=== PATIENT | male | born 1960 | race Caucasian/White ===

== ENCOUNTER 2017-06-25 06:31 | Day surgery (SDC) | payer BC ==
[~2017-06-25] VITALS: Ht 177.8 cm; Wt 94.6 kg
[~2017-06-25 06:31] MED LIST: [UNRECOGNIZED DRUG - OTHER]
[2017-06-25] MEDS ORDERED: SODIUM CHLORIDE 0.9% 1000ML 1,000 ML IV ONE (06:47)
[2017-06-25 08:13] VITALS: BP 183/92
[2017-06-25] MEDS ORDERED: PROPOFOL 10 MG/ML 20ML VIAL IV ONE (09:16)
[2017-06-25 09:45] VITALS: BP 90/53
== END 2017-06-25 10:20 | disposition home or self-care (01) ==
LOC: DAH 06:31
PROVIDERS: ATTEND Internal Medicine Gastroenterology
DX: Z12.11 Encounter for screening for malignant neoplasm of colon (principal); F32.9 Major depressive disorder, single episode, unspecified; Z98.890 Other specified postprocedural states
CPT/HCPCS: 45378; A4606; J2704; J7030

== ENCOUNTER 2022-03-30 13:00 | Observation (INO) | payer BC ==
[~2022-03-30] VITALS: Ht 177.8 cm; Wt 79.9 kg
[2022-03-30 13:52] LABS: BASOPHILS % (AUTO) 0.5 % (0.0-5.0); EOSINOPHILS % (AUTO) 2.2 % (0.0-8.0); HEMATOCRIT 44.4 % (42-54); LYMPHOCYTES % (AUTO) 17.7 % (21.0-51.0); MEAN CORPUSCULAR HEMOGLOBIN 32.9 pg (27.0-33.0); MEAN CORPUSCULAR HGB CONC 34.7 g/dL (32.0-36.0); MEAN CORPUSCULAR VOLUME 94.9 fL (79-99); MONOCYTES % (AUTO) 5.7 % (3.0-13.0); NEUTROPHILS % (AUTO) 73.6 % (40.0-77.0); PLATELET COUNT (AUTO) 202 K/uL (130-400); RED BLOOD CELL COUNT(AUTO) 4.68 MIL/uL (4.50-6.20); RED CELL DISTRIBUTION WIDTH 12.8 % (11.0-15.5); WHITE BLOOD COUNT (AUTO) 10.6 K/uL (4.8-10.8)
[2022-03-30 14:02] LABS: INR 0.94 (0.85-1.15); PROTHROMBIN TIME 10.3 SEC (9.6-11.6)
[2022-03-30 14:04] LABS: PARTIAL THROMBOPLASTIN TIME 28.5 SEC (26.3-35.5)
[2022-03-30 14:04] LABS: CREATININE 0.7 mg/dL (0.5-1.5); POTASSIUM 4.3 mmol/L (3.5-5.1)
[2022-03-30 14:23] LABS: APPEARANCE,URINE CLEAR (CLEAR); BILIRUBIN,URINE NEGATIVE (NEGATIVE); COLOR,URINE LIGHT-YELLOW (YELLOW); GLUCOSE, URINE (UA) NEGATIVE (NEGATIVE); KETONES,URINE 5 mg/dL (NEGATIVE); LEUKOCYTE ESTERASE ,URINE NEGATIVE Leu/uL (NEGATIVE); NITRATE,URINE NEGATIVE (NEGATIVE); OCCULT BLOOD,URINE NEGATIVE (NEGATIVE); PH,URINE 5.5 (5.0-8.0); PROTEIN,URINE NEGATIVE (NEGATIVE); UROBILINOGEN,URINE 0.2 mg/dL (0.2-1.0)
[2022-03-30 14:46] LABS: MUCUS,URINE RARE LPF (None Seen); RBC,URINE 0-1 /HPF (0-1); WBC,URINE 0-1 /HPF (0-1)
[2022-03-30 16:26] VITALS: BP 138/84
[2022-03-30] MEDS ORDERED: BREX2TAB PO (17:47)
[2022-03-30] MEDS ORDERED: AMPH30CA PO (17:47)
[2022-03-30] MEDS ORDERED: TERB250T89 PO (17:47)
[2022-03-30] MEDS ORDERED: TRINTELLIX PO (17:48)
[2022-04-02] VITALS (25 sets, daily range): BP systolic 116–154; BP diastolic 72–90
[2022-04-02] MEDS ORDERED: CEFAZOLIN SODIUM 1 GM VIAL ONE (09:00)
[2022-04-02] MEDS ORDERED: LACTATED RINGERS 1000ML 1,000 ML IV ONE (09:00)
[2022-04-02] MEDS ORDERED: ROPIVACAINE 0.5% 5MG/ML 30ML IJ ONE (11:31)
[2022-04-02] MEDS ORDERED: TRANEXAMIC ACID 1000MG/10ML ONE (11:52)
[2022-04-02] MEDS ORDERED: VANCOMYCIN 1G VIAL ONE (12:09)
[2022-04-02] MEDS ORDERED: MIDAZOLAM HCL 1 MG/ML 2ML VIAL ONE (13:21)
[2022-04-02] MEDS ORDERED: ROCURONIUM 10MG/1ML SYR 10 MG/ML ML ONE ×2 (13:21→14:45)
[2022-04-02] MEDS ORDERED: PROPOFOL 10 MG/ML 20ML VIAL IV ONE (13:21)
[2022-04-02] MEDS ORDERED: LIDOCAINE PF 100MG/5ML (2%) SYRINGE 5ML ONE (13:21)
[2022-04-02] MEDS ORDERED: FENTANYL CITRATE PF 50 MCG/1 ML 2ML VIAL ONE ×4 (13:22→15:53)
[2022-04-02] MEDS ORDERED: CEFAZOLIN SODIUM 2 GM VIAL IVP ONE (13:50)
[2022-04-02] MEDS ORDERED: GLYCOPYRROLATE 1 MG/5 ML SYRINGE ONE (14:48)
[2022-04-02] MEDS ORDERED: HYDROMORPHONE 1 MG INJ ONE (15:11)
[2022-04-02] MEDS ORDERED: NEOSTIGMINE 5MG/5ML SYR IV ONE (15:15)
[2022-04-02] MEDS ORDERED: HYDROCODONE/ACETAMINOPHEN 5/325 MG TAB PO PRN (15:30)
[2022-04-02] MEDS ORDERED: LIDOCAINE HCL-MPF 1% 2ML VIAL IV PRN (15:30)
[2022-04-02] MEDS ORDERED: POTASSIUM CHLORIDE 10% ELIXIR 20 MEQ/15 ML UDCUP PO PRN (15:30)
[2022-04-02] MEDS: ACETAMINOPHEN 500 MG TABLET PO SCH ×2 (15:30→23:47)
[2022-04-02] MEDS ORDERED: KCL 20 MEQ ERTAB PO PRN (15:30)
[2022-04-02] MEDS ORDERED: ONDANSETRON 4MG INJ IVP PRN (15:30)
[2022-04-02] MEDS ORDERED: POTASSIUM CHLORIDE 20MEQ/100ML 100 ML IV PRN (15:30)
[2022-04-02] MEDS ORDERED: ONDANSETRON 4MG INJ ONE (15:41)
[2022-04-02] MEDS: TRAMADOL HCL 50 MG TABLET PO SCH ×2 (18:06→23:43)
[2022-04-02] MEDS: 0.9%NACL 1000ML 1,000 ML IV SCH (19:27)
[2022-04-02] MEDS: MORPHINE 4 MG SYG IVP PRN (19:27)
[2022-04-02] MEDS: ASPIRIN 81 MG EC TAB PO SCH (20:12)
[2022-04-02] MEDS: FAMOTIDINE 20MG TAB PO SCH (20:12)
[2022-04-02] MEDS: CEFAZOLIN SODIUM 1 GM VIAL IVP SCH (20:13)
[2022-04-02] MEDS ORDERED: BREXPIPRAZOLE 2 MG PO SCH (21:00)
[2022-04-03] MEDS: MORPHINE 4 MG SYG IVP PRN ×3 (00:45→10:18)
[2022-04-03] MEDS: 0.9%NACL 1000ML 1,000 ML IV SCH (01:18)
[2022-04-03] MEDS: HYDROCODONE/ACETAMINOPHEN 10/325 MG TAB PO PRN ×2 (03:21→08:22)
[2022-04-03] MEDS: CEFAZOLIN SODIUM 1 GM VIAL IVP SCH (03:21)
[2022-04-03 04:00] VITALS: BP 110/69
[2022-04-03 04:54] LABS: HEMATOCRIT 36.5 % (42-54); MEAN CORPUSCULAR HEMOGLOBIN 32.4 pg (27.0-33.0); MEAN CORPUSCULAR HGB CONC 33.7 g/dL (32.0-36.0); MEAN CORPUSCULAR VOLUME 96.1 fL (79-99); RED BLOOD CELL COUNT(AUTO) 3.8 MIL/uL (4.50-6.20); RED CELL DISTRIBUTION WIDTH 12.6 % (11.0-15.5); WHITE BLOOD COUNT (AUTO) 10.3 K/uL (4.8-10.8)
[2022-04-03 05:09] LABS: CREATININE 0.9 mg/dL (0.5-1.5); POTASSIUM 3.9 mmol/L (3.5-5.1)
[2022-04-03] MEDS: TRAMADOL HCL 50 MG TABLET PO SCH (05:35)
[2022-04-03] MEDS: ACETAMINOPHEN 500 MG TABLET PO SCH (06:22)
[2022-04-03 07:30] VITALS: BP 116/82
[2022-04-03] MEDS ORDERED: **HM**(Terbinafine HCl 250 MG PO SCH (09:00)
[2022-04-03] MEDS ORDERED: POLYETHYLENE GLYCOL 3350 17 GM POWD.PACK PO SCH (09:00)
[2022-04-03] MEDS ORDERED: DEXTROAMPHETAMINE PO SCH (09:00)
[2022-04-03] MEDS: FAMOTIDINE 20MG TAB PO SCH (09:00)
[2022-04-03] MEDS ORDERED: AMPHETAMINE PO SCH (09:00)
[2022-04-03] MEDS ORDERED: TRINTELLIX 20 MG PO SCH (09:00)
[2022-04-03] MEDS: ASPIRIN 81 MG EC TAB PO SCH (10:14)
[2022-04-03 11:00] VITALS: BP 126/71
[2022-04-05] MEDS ORDERED: BISACODYL 10 MG SUPP.RECT RC PRN (15:30)
== END 2022-04-03 11:24 | disposition home or self-care (01) ==
LOC: DAHIP 04-02 07:33 → EDSTATUS 04-02 13:00 → 4DH 04-02 17:02
PROVIDERS: ADMIT Orthopaedic Surgery Sports Medicine; ATTEND Orthopaedic Surgery Sports Medicine
DX: M17.0 Bilateral primary osteoarthritis of knee (principal); Z20.822 Contact with and (suspected) exposure to COVID-19; K21.9 Gastro-esophageal reflux disease without esophagitis; Z79.899 Other long term (current) drug therapy; Z96.651 Presence of right artificial knee joint
CPT/HCPCS: 80048 ×2; 85025; 85610; 85730; 86850; 86900; 86901; 87426; 81001; 36415 ×2; 93005; 27447; 96374; 96375; 76942; 64447; 96376; 85027; 97161; 97039; 97116; 97530; A6260; G0378 ×17; G0379; A4663; J7030 ×2; C1776; J7120; J3370; J3010 ×4; J0690 ×4; J1170; J3490 ×2; J2710; J2001; J2250; J2704; J2405 ×2; J2270 ×4; J2795; A6223; A4649 ×4; A4930; A5120; A4215; A4223 ×2; A4222; A4221